=== PATIENT | female | born 1990 | race African-American/Black ===

== ENCOUNTER 2017-01-25 02:32 | Emergency (ER) | payer MEDICARE ==
[~2017-01-25] VITALS: Ht 165.1 cm; Wt 68.0 kg
--- NOTE | 2017-01-25 02:53 | PHYS DOC ---
Past Medical History Past Medical History: Anemia, Asthma, Other Additional Past Medical Histor: L ovarian cyst "burst" Past Surgical History: Appendectomy Alcohol Use: Occasionally Drug Use: None Adult General Chief Complaint Chief Complaint: ABDOMINAL PAIN HPI HPI Patient is a 26 year old F who presents with suprapubic pain that started tonight while driving home. Patient states she was driving home from [place] developed severe suprapubic pain. Patient has been recently treated for ovarian cysts. Patient denies any vaginal discharge or bleeding. Patient denies . Patient denies any nausea/vomiting/diarrhea. Patient denies any fevers. Patient denies any dysuria. Patient has no other complaints. Pertinent exam findings: Suprapubic tenderness palpation with bowel sounds heard in all 4 quadrants ED course: Patient was seen and evaluated CBC, CMP, lipase, UA, urine regnancy, pelvic ultrasound was ordered along with 30 mg of Toradol IV 0605: Updated patient on ultrasound results and lab results and plan to discharge. Patient's pain has improved and she is resting comfortably in the bed. Recommended follow-up with [facility]. Pertinent results: Labwork unremarkable Ultrasound NAD MDM: After reviewing the chart, CC/HPI/PMH, physical exam, [lab results], [ radiological results], I do not believe the patient has an acute intra- abdominal emergency or an [facility] emergency warranting further workup and admission at this time. On reexamination patient abdominal pain is improved and recommended follow-up with [facility] for further evaluation. Patient is stable for discharge. Additional verbal discharge instructions were provided to the patient and that if symptoms get worse or any new symptoms arise that are worrisome to the patient she is to return to the emergency room immediately Review of Systems Review of Systems GEN: Denies fevers, chills, sweats HEENT: Denies blurred vision, sore throat CV: Denies chest pain RESP: Denies shortness of air, cough GI: Abdominal pain NEURO: Denies confusion, dizziness MSK: Denies weakness, joint pain/swelling Current Medications Current Medications Current Medications Medications (Trade) Dose Ordered Sig/Asif Start Time Stop Time Status Last Admin Dose Admin Diphtheria/ Tetanus/Acell Pertussis (Boostrix) 0.5 ml ONCE ONCE 01/25/17 06:15 01/25/17 06:16 UNV Fentanyl Citrate (Fentanyl 2ml Vial) 50 mcg 1X ONCE 01/25/17 04:00 01/25/17 04:01 DC 01/25/17 03:50 50 MCG Ketorolac Tromethamine (Toradol) 30 mg 1X ONCE 01/25/17 03:30 01/25/17 03:31 DC 01/25/17 03:01 30 MG Allergies Allergies Allergies Coded Allergies Type Severity Reaction Last Updated Verified fluconazole Allergy Intermediate hives 09/22/15 Yes latex Allergy Intermediate 09/22/15 No tramadol Allergy Intermediate hives 09/22/15 Yes Physical Exam Physical Exam GEN.: No apparent distress. Alert and oriented. HEENT: Head is normocephalic, atraumatic NECK: Supple. LUNGS: CTAB. HEART: RRR, S1, S2 present. Peripheral pulses intact ABDOMEN: Soft, positive tenderness to palpation suprapubic with no rebound tenderness. Positive bowel sounds. EXTREMITIES: Without any cyanosis. NEUROLOGIC: Normal speech, normal tone PSYCHIATRIC: Normal affect, normal mood. SKIN: No ulcerations Current Patient Data Vital Signs Vital Signs Date Time Temp Pulse Resp B/P (MAP) Pulse Ox O2 Delivery O2 Flow Rate FiO2 01/25/17 03:00 97.4 68 16 123/69 (87) 98 Room Air 97.4 Lab Values Laboratory Tests Test 01/25/17 02:03 01/25/17 02:40 01/25/17 02:55 01/25/17 04:30 POC Urine HCG, Qualitative Hcg negative (Negative) Urine Collection Type Unknown Urine Color Yellow Urine Clarity Clear Urine pH 6.5 Urine Specific [place] 1.020 Urine Protein Negative mg/dL (NEG-TRACE) Urine Glucose (UA) Negative mg/dL (NEG) Urine Ketones (Stick) Negative mg/dL (NEG) Urine Blood Negative (NEG) Urine Nitrite Negative (NEG) Urine Bilirubin Negative (NEG) Urine Urobilinogen Dipstick 0.2 mg/dL (0.2 mg/dL) Urine Leukocyte Esterase Negative (NEG) Urine RBC 0 /HPF (0-2) Urine WBC 1-4 /HPF (0-4) Urine Squamous Epithelial Cells Mod /LPF Urine Bacteria 0 /HPF (0-FEW) Urine Mucus Slight /LPF White Blood Count 10.7 x10^3/uL (4.0-11.0) Red Blood Count 3.19 x10^6/uL (3.50-5.40) L Hemoglobin 10.2 g/dL (12.0-15.5) L Hematocrit 30.1 % (36.0-47.0) L Mean Corpuscular Volume 94 fL (79-100) Mean Corpuscular Hemoglobin 32 pg (25-35) Mean Corpuscular Hemoglobin Concent 34 g/dL (31-37) Red Cell Distribution Width 17.2 % (11.5-14.5) H Platelet Count 302 x10^3/uL (140-400) Neutrophils (%) (Auto) 62 % (31-73) Lymphocytes (%) (Auto) 31 % (24-48) Monocytes (%) (Auto) 6 % (0-9) Eosinophils (%) (Auto) 0 % (0-3) Basophils (%) (Auto) 0 % (0-3) Neutrophils # (Auto) 6.7 x10^3uL (1.8-7.7) Lymphocytes # (Auto) 3.3 x10^3/uL (1.0-4.8) Monocytes # (Auto) 0.6 x10^3/uL (0.0-1.1) Eosinophils # (Auto) 0.0 x10^3/uL (0.0-0.7) Basophils # (Auto) 0.0 x10^3/uL (0.0-0.2) Sodium Level 140 mmol/L (136-145) Potassium Level 3.8 mmol/L (3.5-5.1) Chloride Level 105 mmol/L (98-107) Carbon Dioxide Level 26 mmol/L (21-32) Anion Gap 9 (6-14) Blood Urea Nitrogen 9 mg/dL (7-20) Creatinine 0.6 mg/dL (0.6-1.0) Estimated GFR (Cockcroft-Gault) 147.4 BUN/Creatinine Ratio 15 (6-20) Glucose Level 91 mg/dL (70-99) Calcium Level 8.6 mg/dL (8.5-10.1) Total Bilirubin 0.1 mg/dL (0.2-1.0) L Aspartate Amino Transferase (AST) 17 U/L (15-37) Alanine Aminotransferase (ALT) 18 U/L (14-59) Alkaline Phosphatase 84 U/L (46-116) Total Protein 7.3 g/dL (6.4-8.2) Albumin 3.9 g/dL (3.4-5.0) Albumin/Globulin Ratio 1.1 (1.0-1.7) Lactic Acid Level 0.7 mmol/L (0.4-2.0) Laboratory Tests 01/25/17 02:55 Laboratory Tests 01/25/17 02:55 EKG EKG [] Radiology/Procedures Radiology/Procedures pelvic US: IMPRESSION: 1. Minimal trace amount of fluid identified within the endometrium. Nonspecific. 2. Minimal amount of free fluid identified in the cul-de-sac. Probably physiological for this age. Otherwise unremarkable exam[] Course & Med Decision Making Course & Med Decision Making Pertinent Labs and Imaging studies reviewed. (See chart for details) [] Dragon Disclaimer Dragon Disclaimer This electronic medical record was generated, in whole or in part, using a voice recognition dictation system. Departure Departure Impression: Primary Impression: Suprapubic abdominal pain Disposition: 01 HOME, SELF-CARE Condition: IMPROVED Referrals: NO PCP (PCP) Patient Instructions: Abdominal Pain (Nonspecific) Additional Instructions: Please follow up with her family doctor or [facility] in next 1-2 days for further evaluation of abdominal pain ROBERT MONTILLA DO Jan 25, 2017 02:53
[2017-01-25 03:03] LABS: BASO % 0 % (0-3); EOS % 0 % (0-3); HEMATOCRIT 30.1 % (36.0-47.0); HEMOGLOBIN 10.2 g/dL (12.0-15.5); LYMPH # 3.3 x10^3/uL (1.0-4.8); LYMPH % 31 % (24-48); MEAN CORPUSCULAR HEMOGLOBIN 32 pg (25-35); MEAN CORPUSCULAR HGB CONC 34 g/dL (31-37); MEAN CORPUSCULAR VOLUME 94 fL (79-100); MONO % 6 % (0-9); NEUT % 62 % (31-73); PLATELET COUNT 302 x10^3/uL (140-400); RED BLOOD COUNT 3.19 x10^6/uL (3.50-5.40); RED CELL DISTRIBUTION WIDTH 17.2 % (11.5-14.5); WHITE BLOOD COUNT 10.7 x10^3/uL (4.0-11.0)
[2017-01-25 03:04] LABS: BILIRUBIN,URINE NEGATIVE (NEG); GLUCOSE,URINE NEGATIVE (NEG); NITRITE,URINE NEGATIVE (NEG); PH,URINE 6.5; PROTEIN,URINE NEGATIVE (NEG-TRACE); UROBILINOGEN,URINE 0.2 mg/dL (0.2 mg/dL)
[2017-01-25 03:10] LABS: BACTERIA,URINE 0 /HPF (0-FEW); RBC,URINE 0 /HPF (0-2); SQUAMOUS EPITHELIAL CELL,UR MOD /LPF
[2017-01-25 03:12] LABS: CALCIUM 8.6 mg/dL (8.5-10.1); CREATININE 0.6 mg/dL (0.6-1.0); GFR 147.4; POTASSIUM 3.8 mmol/L (3.5-5.1)
[2017-01-25 03:18] LABS: ALBUMIN 3.9 g/dL (3.4-5.0); ALBUMIN/GLOBULIN RATIO 1.1 (1.0-1.7); TOTAL BILIRUBIN 0.1 mg/dL (0.2-1.0); TOTAL PROTEIN 7.3 g/dL (6.4-8.2)
[2017-01-25] MEDS ORDERED: KETOROLAC TROMETHAMINE 30 MG/ML INJ. IV ONE (03:30)
[2017-01-25 03:43] VITALS: BP 106/60
[2017-01-25] MEDS ORDERED: fentaNYL PF VIAL 100 MCG/2 ML VIAL IV ONE (04:00)
--- NOTE | 2017-01-25 05:13 | RAD ---
Examination: Ultrasound pelvis HISTORY: History of right-sided pelvic pain for 2 hours Comparison: None available TECHNIQUE: Transabdominal, transvaginal ultrasound examination of the pelvis FINDINGS: The uterus measures 8.4 x5.1 x4.5 cm. Trace amount of fluid identified in the endometrium. Endometrium is 8.8 mm in thickness. The right ovary measures 2.3 x 2.4 x 1.7 cm The left ovary measures 2.2 x 1.8 x1.2 cm Blood flow identified in the bilateral ovaries. Small amount of free fluid identified in the cul-de-sac. IMPRESSION: 1. Minimal trace amount of fluid identified within the endometrium. Nonspecific. 2. Minimal amount of free fluid identified in the cul-de-sac. Probably physiological for this age. Otherwise unremarkable exam Electronically signed by: Olivier Ely MD (01/25/2017 5:09 AM)
[2017-01-25] MEDS ORDERED: DIPHTH,PERTUSS(ACELL),TET TOX 0.5 ML DISP.SYRIN. VAX IM ONE (06:15)
== END 2017-01-25 06:45 | disposition home or self-care (01) ==
LOC: ER 02:32
DX: R10.30 Lower abdominal pain, unspecified (principal); J45.909 Unspecified asthma, uncomplicated; Z88.5 Allergy status to narcotic agent; Z88.1 Allergy status to other antibiotic agents; Z91.040 Latex allergy status
CPT/HCPCS: 36415; 76830; 76856; 80053; 81001; 81025; 83605; 85027; 96374; 96375; 99285; J1885; J3010

== ENCOUNTER 2017-07-14 01:19 | Emergency (ER) | payer MEDICARE, MEDICAID ==
[~2017-07-14] VITALS: Ht 165.1 cm; Wt 68.0 kg
[2017-07-14 01:45] LABS: BILIRUBIN,URINE NEGATIVE (NEG); GLUCOSE,URINE NEGATIVE (NEG); NITRITE,URINE NEGATIVE (NEG); PH,URINE 6.5; PROTEIN,URINE NEGATIVE (NEG-TRACE)
[2017-07-14 01:50] LABS: BACTERIA,URINE MODERATE /HPF (0-FEW); RBC,URINE 0 /HPF (0-2); SQUAMOUS EPITHELIAL CELL,UR MANY /LPF
[2017-07-14 02:01] LABS: BASO # 0.1 x10^3/uL (0.0-0.2); BASO % 1 % (0-3); EOS % 0 % (0-3); HEMATOCRIT 30.9 % (36.0-47.0); LYMPH # 2.6 x10^3/uL (1.0-4.8); LYMPH % 28 % (24-48); MEAN CORPUSCULAR HEMOGLOBIN 27 pg (25-35); MEAN CORPUSCULAR HGB CONC 32 g/dL (31-37); MEAN CORPUSCULAR VOLUME 84 fL (79-100); MONO % 6 % (0-9); NEUT % 65 % (31-73); PLATELET COUNT 341 x10^3/uL (140-400); RED BLOOD COUNT 3.68 x10^6/uL (3.50-5.40); RED CELL DISTRIBUTION WIDTH 15.2 % (11.5-14.5); WHITE BLOOD COUNT 9.3 x10^3/uL (4.0-11.0)
[2017-07-14 02:08] LABS: CALCIUM 8.6 mg/dL (8.5-10.1); CREATININE 0.6 mg/dL (0.6-1.0); GFR 146.2; POTASSIUM 3.6 mmol/L (3.5-5.1)
[2017-07-14 02:14] LABS: ALBUMIN 3.7 g/dL (3.4-5.0); ALBUMIN/GLOBULIN RATIO 1.1 (1.0-1.7); TOTAL BILIRUBIN 0.1 mg/dL (0.2-1.0); TOTAL PROTEIN 7.2 g/dL (6.4-8.2)
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
[2017-07-14] MEDS ORDERED: LORazepam 1 MG TABLET PO ONE (02:30)
[2017-07-14] MEDS ORDERED: IBUPROFEN 400 MG TABLET. PO ONE (02:30)
[2017-07-14] MEDS ORDERED: METOCLOPRAMIDE HCL 10 MG/2 ML VIAL. IV ONE (03:00)
[2017-07-14] MEDS ORDERED: METR500T PO (03:28)
[2017-07-14] MEDS: HYDROmorphone 2 MG/ML VIAL IV PRN ×2 (03:43→03:44)
[2017-07-14] MEDS ORDERED: cefTRIAXone IM 250 MG VIAL IM ONE (04:00)
[2017-07-14] MEDS ORDERED: AZITHROMYCIN 250 MG TABLET. PO ONE (04:00)
--- NOTE | 2017-07-17 17:02 | VNOTE ---
CALL BACK NOTE CALL BACK Microbiology 07/14/17 Wet Prep - Final, Complete 07/14/17 Urine Culture - Final, Complete 07/14/17 Urine Culture Result 1 (JOHN) - Final, Complete Patient was positive for chlamydia and not treated. Called her, her phone is not accepting calls. LAVERN MARQUES APRN Jul 17, 2017 17:02
== END 2017-07-14 04:03 | disposition home or self-care (01) ==
LOC: ER 01:19
DX: N76.0 Acute vaginitis (principal); B96.89 Other specified bacterial agents as the cause of diseases classified elsewhere; J45.909 Unspecified asthma, uncomplicated; F41.9 Anxiety disorder, unspecified; Z88.8 Allergy status to other drugs, medicaments and biological substances; Z88.6 Allergy status to analgesic agent; Z91.040 Latex allergy status
CPT/HCPCS: 36415; 80053; 81001; 81025; 83690; 85025; 87086; 87491; 87591; 96372; 99284; J0696; Q0111; Q0144

== ENCOUNTER 2017-07-27 18:03 | Emergency (ER) | payer MEDICARE, MEDICAID ==
[~2017-07-27] VITALS: Ht 165.1 cm; Wt 63.5 kg
[~2017-07-27 18:03] MED LIST: METR500T PO
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
[2017-07-27] MEDS ORDERED: IBUPROFEN 800 MG TABLET. PO ONE ×2 (20:10→20:15)
[2017-07-27 20:12] VITALS: BP 114/60
[2017-07-27] MEDS ORDERED: IBUP-1060 PO (20:13)
[2017-07-27] MEDS ORDERED: CYCL5TAB PO (20:13)
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
== END 2017-07-27 20:16 | disposition home or self-care (01) ==
LOC: ER 18:03
DX: S20.212A Contusion of left front wall of thorax, initial encounter (principal); J45.909 Unspecified asthma, uncomplicated; Z88.8 Allergy status to other drugs, medicaments and biological substances; Z88.6 Allergy status to analgesic agent; Z91.040 Latex allergy status; Y04.2XXA Assault by strike against or bumped into by another person, initial encounter; Y93.89 Activity, other specified; Y99.8 Other external cause status; Y92.89 Other specified places as the place of occurrence of the external cause
CPT/HCPCS: 71101; 81025; 99284

== ENCOUNTER 2017-09-12 09:08 | Emergency (ER) | payer MEDICARE, MEDICAID ==
[2017-09-12] MEDS: ONDANSETRON ODT 4 MG TAB.RAPDIS. PO ×2 (10:16)
[2017-09-12 10:23] LABS: INFLUENZA A PATIENT NEGATIVE (NEGATIVE); INFLUENZA B PATIENT NEGATIVE (NEGATIVE); OBC FLU VALID
[2017-09-12 11:11] LABS: NEGATIVE OBC STREP NEG; POSITIVE OBC STREP POS
== END 2017-09-12 10:49 | disposition home or self-care (01) ==
LOC: ER 09:08
DX: R11.2 Nausea with vomiting, unspecified (principal); J02.8 Acute pharyngitis due to other specified organisms; B97.89 Other viral agents as the cause of diseases classified elsewhere; R50.9 Fever, unspecified; J45.909 Unspecified asthma, uncomplicated; F17.210 Nicotine dependence, cigarettes, uncomplicated; Z88.5 Allergy status to narcotic agent; Z88.8 Allergy status to other drugs, medicaments and biological substances; Z91.040 Latex allergy status
CPT/HCPCS: 87070; 87804; 87804-59; 87880; 99284; Q0162

== ENCOUNTER 2017-09-20 17:47 | Emergency (ER) | payer MEDICARE, MEDICAID | END 2017-09-20 19:04 | disposition home or self-care (01) | LOC: ER 17:47 | DX: B34.9 Viral infection, unspecified (principal); J45.909 Unspecified asthma, uncomplicated; Z88.6 Allergy status to analgesic agent; Z88.1 Allergy status to other antibiotic agents; Z91.040 Latex allergy status | CPT/HCPCS: 99283 ==

== ENCOUNTER 2017-12-27 20:17 | Emergency (ER) | payer MEDICARE, MEDICAID ==
[2017-12-27 20:59] LABS: URINE HCG POC HCG NEGATIVE (Negative)
[2017-12-27] MEDS: ACETAMINOPHEN/CODEINE 300/30MG TABLET. PO (21:31)
== END 2017-12-27 22:04 | disposition home or self-care (01) ==
LOC: ER 20:17
DX: S00.31XA Abrasion of nose, initial encounter (principal); S09.90XA Unspecified injury of head, initial encounter; R11.2 Nausea with vomiting, unspecified; R04.0 Epistaxis; J45.909 Unspecified asthma, uncomplicated; Z88.8 Allergy status to other drugs, medicaments and biological substances; Z88.6 Allergy status to analgesic agent; Z91.040 Latex allergy status; Y04.0XXA Assault by unarmed brawl or fight, initial encounter; Y93.89 Activity, other specified; Y99.8 Other external cause status; Y92.89 Other specified places as the place of occurrence of the external cause
CPT/HCPCS: 70450; 70486; 72125; 81025; 99284-25

== ENCOUNTER 2018-01-23 22:47 | Emergency (ER) | payer MEDICARE ==
[2018-01-23 23:45] LABS: URINE HCG POC HCG NEGATIVE (Negative)
[2018-01-24 00:10] LABS: BILIRUBIN,URINE NEGATIVE (NEG); CLARITY,URINE CLEAR; COLOR,URINE YELLOW; GLUCOSE,URINE NEGATIVE (NEG); NITRITE,URINE NEGATIVE (NEG); PROTEIN,URINE NEGATIVE (NEG-TRACE); UROBILINOGEN,URINE 0.2 mg/dL (0.2 mg/dL)
[2018-01-24] MEDS: IV NORMAL SALINE 1000ML BAG 1,000 ML IV (00:12)
[2018-01-24 00:22] LABS: ADD MAN DIFF? NO
[2018-01-24 00:23] LABS: BACTERIA,URINE FEW /HPF (0-FEW); RBC,URINE OCC /HPF (0-2); SQUAMOUS EPITHELIAL CELL,UR MOD /LPF
[2018-01-24] MEDS ORDERED: ONDANSETRON PF 4 MG/2 ML VIAL. (00:25)
[2018-01-24] MEDS ORDERED: MORPHINE SULFATE 10 MG/ML VIAL. (00:25)
[2018-01-24 00:28] LABS: BASO % 1 % (0-3); EOS % 0 % (0-3); HEMATOCRIT 30.6 % (36.0-47.0); HEMOGLOBIN 10.4 g/dL (12.0-15.5); LYMPH # 1.5 x10^3/uL (1.0-4.8); LYMPH % 22 % (24-48); MEAN CORPUSCULAR HEMOGLOBIN 29 pg (25-35); MEAN CORPUSCULAR HGB CONC 34 g/dL (31-37); MEAN CORPUSCULAR VOLUME 85 fL (79-100); MONO # 0.3 x10^3/uL (0.0-1.1); MONO % 5 % (0-9); NEUT # 4.8 x10^3uL (1.8-7.7); NEUT % 73 % (31-73); PLATELET COUNT 343 x10^3/uL (140-400); RED BLOOD COUNT 3.59 x10^6/uL (3.50-5.40); RED CELL DISTRIBUTION WIDTH 16.2 % (11.5-14.5); WHITE BLOOD COUNT 6.6 x10^3/uL (4.0-11.0)
[2018-01-24] MEDS: MORPHINE SULFATE 10 MG/ML VIAL. IV (00:30)
[2018-01-24] MEDS ORDERED: CONTRAST GIVEN. MC (00:30)
[2018-01-24] MEDS: ONDANSETRON PF 4 MG/2 ML VIAL. IV (00:30)
[2018-01-24 00:36] LABS: ANION GAP 12 (6-14); BLOOD UREA NITROGEN 11 mg/dL (7-20); CALCIUM 8.7 mg/dL (8.5-10.1); CARBON DIOXIDE 23 mmol/L (21-32); CHLORIDE 106 mmol/L (98-107); CREATININE 0.6 mg/dL (0.6-1.0); GFR 146.2; GLUCOSE 117 mg/dL (70-99); POTASSIUM 3.8 mmol/L (3.5-5.1); SODIUM 141 mmol/L (136-145)
[2018-01-24 00:43] LABS: ALBUMIN 3.8 g/dL (3.4-5.0); ALK PHOS 85 U/L (46-116); ALT (SGPT) 16 U/L (14-59); AST (SGOT) 14 U/L (15-37); DIRECT BILIRUBIN < 0.1 mg/dL (0.0-0.2); LIPASE 110 U/L (73-393); TOTAL BILIRUBIN 0.1 mg/dL (0.2-1.0); TOTAL PROTEIN 7.3 g/dL (6.4-8.2)
[2018-01-24] MEDS: IOHEXOL 300 MG/ML 100ML VIAL. IV (01:00)
[2018-01-24] MEDS: MORPHINE SULFATE 4 MG/ML DISP.SYRIN. IV (01:28)
[2018-01-24] MEDS ORDERED: AZITHROMYCIN 250 MG TABLET. PO (01:45)
[2018-01-24] MEDS ORDERED: cefTRIAXone IM 250 MG VIAL IM (01:45)
[2018-01-25 14:24] LABS: CHLAMYDIA PROBE Negative (Negative); GC PROBE Negative (Negative)
== END 2018-01-24 02:12 | disposition home or self-care (01) ==
LOC: ER 01-24 02:12
DX: R10.30 Lower abdominal pain, unspecified (principal); R11.0 Nausea; R19.7 Diarrhea, unspecified; J45.909 Unspecified asthma, uncomplicated; Z86.2 Personal history of diseases of the blood and blood-forming organs and certain disorders involving the immune mechanism; Z90.49 Acquired absence of other specified parts of digestive tract; Z88.6 Allergy status to analgesic agent; Z88.8 Allergy status to other drugs, medicaments and biological substances; Z91.040 Latex allergy status
CPT/HCPCS: 36415; 74177; 80048; 80076; 81001; 81025; 83690; 85025; 87491; 87591; 96374; 96375; 96376; 99285-25; J2270; J2405; J7030; Q9967